=== PATIENT | male | born 1980 | race Two or more races ===

== ENCOUNTER 2022-02-13 16:54 | Emergency (ER) | payer OTHER ==
[~2022-02-13] VITALS: Ht 182.9 cm; Wt 106.4 kg
[2022-02-13 17:56] VITALS: BP 134/93
[2022-02-13] MEDS ORDERED: ALBUTEROL MEDNEB 2.5 mg/3ml NEB ONE (18:54)
[2022-02-13] MEDS ORDERED: IPRATROPIUM BROM 0.5 MG/2.5ML INH SOL NEB ONE (19:00)
[2022-02-13] MEDS ORDERED: ALBUTEROL SULF 2.5 MG/0.5ML(0.5%) NEB SOLN NEB ONE (19:00)
[2022-02-13] MEDS ORDERED: PROM1SOL4 PO (19:24)
[2022-02-13] MEDS ORDERED: ALBUAER3 IN (19:24)
[2022-02-13] MEDS ORDERED: PRED20TA2 PO (19:24)
== END 2022-02-13 19:38 | disposition home or self-care (01) ==
LOC: ER 16:54
DX: J06.9 Acute upper respiratory infection, unspecified (principal); Z20.822 Contact with and (suspected) exposure to COVID-19
CPT/HCPCS: 36415; 71046; 87426; 87804; 94640; 99284; J7644